=== PATIENT | female | born 1985 ===

== ENCOUNTER 2017-05-18 17:28 | Emergency (ER) | payer MEDICAID ==
[~2017-05-18] VITALS: Ht 167.6 cm; Wt 79.4 kg
[2017-05-18] MEDS ORDERED: ONDANSETRON HCL 4 MG/2 ML VIAL IV ONE (20:00)
[2017-05-18] MEDS ORDERED: NALBUPHINE HCL 10 MG/1ml INJECTION IV ONE (20:00)
[2017-05-18 21:22] LABS: BUN/Creatinine Ratio 17.4; Calcium 8.9 mg/dL (8.5-10.1); Potassium 3.6 mmol/L (3.5-5.1)
[2017-05-18 21:24] LABS: Basophils # (auto) 0 uL; Basophils % (auto) 0.4 % (0.0-2.0); CONDITION Y; Eosinophils # (auto) 0.5 uL; Eosinophils % (auto) 4.3 % (0.0-7.0); Hematocrit 41.8 % (36.0-46.0); Hemoglobin 13.7 g/dL (12.2-16.2); Lymphocytes # (auto) 4.1 uL; Lymphocytes % (auto) 38.6 % (10.0-50.0); Mean Corpuscular Hemoglobin 31.9 pg (28.0-32.0); Mean Corpuscular Hgb Conc. 32.7 g/dL (32.0-36.0); Mean Corpuscular Volume 97.6 fL (80.0-100.0); Mean Platelet Volume 7.7 fL (7.4-10.4); Monocytes # (auto) 0.9 uL; Monocytes % (auto) 8.2 % (0.0-12.0); Neutrophils # (auto) 5.1 uL; Neutrophils % (auto) 48.5 % (37.0-80.0); Platelet Count (auto) 374 10^3/uL (140-450); Red Cell Distribution Width 14.6 % (11.6-16.0); White Blood Cell 10.6 10^3/uL (4.4-10.8)
[2017-05-18 21:25] LABS: Bilirubin, Total 0.3 mg/dL (0.2-1.0); Total Protein 7.8 g/dL (6.4-8.2)
[2017-05-18 21:55] VITALS: BP 115/62
== END 2017-05-18 21:57 | disposition home or self-care (01) ==
LOC: ER 17:28
DX: J32.9 Chronic sinusitis, unspecified (principal); R51 Headache; E11.9 Type 2 diabetes mellitus without complications; I10 Essential (primary) hypertension; Z87.820 Personal history of traumatic brain injury
CPT/HCPCS: 36415; 70480; 80053; 84702; 85025; 96374; 96375; 99285; J2300; J2405

== ENCOUNTER 2017-07-09 11:59 | Inpatient (IN) | payer MEDICAID ==
[~2017-07-09] VITALS: Ht 165.1 cm; Wt 101.3 kg
[2017-07-09] MEDS ORDERED: SODIUM CHLORIDE 0.9% 1,000 ML IV ONE (12:30)
[2017-07-09 12:39] LABS: Basophils # (auto) 0 uL; Basophils % (auto) 0.4 % (0.0-2.0); CONDITION Y; Eosinophils # (auto) 0.3 uL; Eosinophils % (auto) 4.7 % (0.0-7.0); Hematocrit 34.9 % (36.0-46.0); Hemoglobin 11.6 g/dL (12.2-16.2); Lymphocytes # (auto) 2.1 uL; Lymphocytes % (auto) 30.3 % (10.0-50.0); Mean Corpuscular Hemoglobin 32.2 pg (28.0-32.0); Mean Corpuscular Hgb Conc. 33.4 g/dL (32.0-36.0); Mean Corpuscular Volume 96.5 fL (80.0-100.0); Mean Platelet Volume 7.9 fL (7.4-10.4); Monocytes # (auto) 0.5 uL; Monocytes % (auto) 7.1 % (0.0-12.0); Neutrophils % (auto) 57.5 % (37.0-80.0); Platelet Count (auto) 296 10^3/uL (140-450); Red Cell Distribution Width 15.1 % (11.6-16.0); White Blood Cell 6.9 10^3/uL (4.4-10.8)
[2017-07-09] MEDS ORDERED: PHENYTOIN IV DILANTIN 1,000 MG in SODIUM CHL 0.9% 250 ML IV ONE (13:15)
[2017-07-09 14:22] LABS: Albumin 3.2 g/dL (3.4-5.0); BUN/Creatinine Ratio 23.2; Calcium 8.4 mg/dL (8.5-10.1); Potassium 4.1 mmol/L (3.5-5.1)
[2017-07-09 14:26] LABS: Bilirubin, Total 0.3 mg/dL (0.2-1.0)
[2017-07-09] MEDS ORDERED: KETOROLAC TROMETH 30 MG/ML 1ML VIAL IV ONE (16:00)
[2017-07-09] MEDS ORDERED: LORazepam 0.5 MG TAB PO PRN (16:30)
[2017-07-09] MEDS ORDERED: NITROGLYCERIN 0.4 MG SL TAB SL PRN (16:30)
[2017-07-09] MEDS ORDERED: LACTULOSE 20Gm/30ML SOLN PO PRN (16:30)
[2017-07-09] MEDS ORDERED: MORPHINE SULF INJ 2 MG/ML SYRINGE 1ML IV PRN (16:30)
[2017-07-09] MEDS ORDERED: ACETAMINOPHEN 500 MG TAB PO PRN (16:30)
[2017-07-09] MEDS ORDERED: TEMAZEPAM 15 MG CAP PO PRN (16:30)
[2017-07-09] MEDS ORDERED: LEVETIRACETAM 500 MG TAB PO ONE (16:30)
[2017-07-09] MEDS ORDERED: DEXTROSE (50%) 50ML SYRG IV PRN (16:30)
[2017-07-09] MEDS: SODIUM CHLORIDE 0.9% 1,000 ML IV SCH ×2 (16:40→21:18)
[2017-07-09] MEDS ORDERED: ACCU-CHEK COMFORT CURVE STRIP VI SCH (17:00)
[2017-07-09] MEDS ORDERED: InsuLIN REG 1unit/0.01ml Soln (100units/ml) SC SCH (17:00)
[2017-07-09] MEDS ORDERED: LEVE500T22 PO (20:48)
[2017-07-09] MEDS: MORPHINE SULF INJ 2 MG/ML SYRINGE 1ML IV PRN (21:28)
[2017-07-09 21:51] VITALS: BP 97/52
[2017-07-09] MEDS: LEVETIRACETAM 500 MG TAB PO SCH (22:37)
[2017-07-10] MEDS: HYDROcodone-ACET 5/325MG TAB PO PRN ×4 (00:55→23:59)
[2017-07-10 04:55] VITALS: BP 108/67
[2017-07-10 06:47] LABS: Urine Bilirubin Negative (Negative); Urine Color Yellow (Yellow); Urine Glucose Normal (Normal); Urine Ketone Negative (Negative); Urine Mucus FEW (None Seen); Urine Nitrite Negative (Negative); Urine RBC 19 /hpf (0 - 4); Urine Squamous Epithelial Cell FEW /hpf (<5); Urine Urobilinogen Normal (Negative); Urine pH 6.5 (5.0-8.0)
[2017-07-10 06:48] LABS: Urine Blood 1+ /uL (Negative)
[2017-07-10] MEDS: LORazepam 2MG/ML-1ML VIAL IV PRN ×2 (08:23→16:20)
[2017-07-10 08:52] VITALS: BP 122/89
[2017-07-10] MEDS: LEVETIRACETAM 500 MG TAB PO SCH ×2 (09:53→21:16)
[2017-07-10] MEDS ORDERED: cefTRIAXone 1GM/50ML D5W 50 ML IV ONE (10:15)
[2017-07-10] MEDS: PROMETHAZINE HCL 25 MG/ML 1ML IV PRN ×3 (11:47→21:17)
[2017-07-10] MEDS: MORPHINE SULF INJ 2 MG/ML SYRINGE 1ML IV PRN ×3 (11:48→21:17)
[2017-07-10 12:32] VITALS: BP 109/70
[2017-07-10 17:13] VITALS: BP 135/65
[2017-07-10] MEDS ORDERED: LEVETIRACETAM 500 MG TAB PO ONE (17:45)
[2017-07-10] MEDS: SODIUM CHLORIDE 0.9% 1,000 ML IV SCH (19:02)
[2017-07-10 20:00] VITALS: BP 116/72
[2017-07-10 22:00] VITALS: BP 116/72
[2017-07-11] MEDS: MORPHINE SULF INJ 2 MG/ML SYRINGE 1ML IV PRN ×2 (01:32→13:00)
[2017-07-11 05:00] VITALS: BP 114/56
[2017-07-11] MEDS: LEVETIRACETAM 500 MG TAB PO SCH (08:11)
[2017-07-11] MEDS: SODIUM CHLORIDE 0.9% 1,000 ML IV SCH (08:12)
[2017-07-11 08:27] VITALS: BP 118/71
[2017-07-11] MEDS ORDERED: cefTRIAXone 1GM/50ML D5W 50 ML IV SCH (09:00)
[2017-07-11] MEDS: HYDROcodone-ACET 5/325MG TAB PO PRN (10:21)
[2017-07-11 12:33] VITALS: BP 114/55
== END 2017-07-11 15:55 | disposition home or self-care (01) | DRG 53 ==
LOC: EDBD 11:59 → ER 11:59 → TELE 12:00 → TELE-WESTW 19:55
PROVIDERS: ADMIT Internal Medicine; ATTEND Internal Medicine
DX: G40.919 Epilepsy, unspecified, intractable, without status epilepticus (principal); E11.42 Type 2 diabetes mellitus with diabetic polyneuropathy; N39.0 Urinary tract infection, site not specified; K59.00 Constipation, unspecified; G47.00 Insomnia, unspecified; I10 Essential (primary) hypertension; N83.209 Unspecified ovarian cyst, unspecified side; F17.210 Nicotine dependence, cigarettes, uncomplicated; Z91.14 Patient's other noncompliance with medication regimen; Z88.8 Allergy status to other drugs, medicaments and biological substances; Z79.899 Other long term (current) drug therapy; Z80.3 Family history of malignant neoplasm of breast; Z82.49 Family history of ischemic heart disease and other diseases of the circulatory system; Z83.3 Family history of diabetes mellitus
CPT/HCPCS: 36415; 70450; 80053; 80185; 80307; 81001; 82542; 82962; 83036; 84702; 85025; 85652; 87086; 96361; 96365; 96375; 99291; J0696; J1885